=== PATIENT | male | born 1935 | race Caucasian/White ===

== ENCOUNTER → 2018-05-06 13:41 | Outpatient (CLI) | payer MEDICARE, OTHER, SELFPAY ==
[2018-05-06 15:52] LABS: Absolute Lymphocyte Count 1.11 X10^3/ul (0.83-4.51); Absolute Neutrophil Count 3.2 X10^3/uL (2.0-7.7); Basophil# 0.04 X10^3/uL; Basophil% 0.8 % (0-1); Eosinophil# 0.06 X10^3/uL; Eosinophils% 1.2 % (0-5); Hematocrit 35.3 % (40-54); Hemoglobin 11.7 g/dl (13.0-16.5); Lymphocyte # 1.11 X10^3/ul (4.0); Lymphocyte % 22.9 % (19-41); Mean Corp Hgb Conc 33.1 g/gl (32-36); Mean Corpuscular Hgb 31.7 pg (27.0-32.0); Mean Corpuscular Volume 95.7 fL (80-94); Mean Platelet Vol. 8.5 fl (6.2-12.0); Monocyte# 0.44 X10^3/uL; Monocyte% 9.1 % (0-10); Platelet Count 149 K/mm3 (150-450); RBC Distribution Width CV 12.5 % (11.6-14.6); RBC Distribution Width SD 43.3 fl (35.1-43.9); Red Blood Count 3.69 M/mm3 (4.6-6.2); White Blood Count 4.9 K/mm3 (4.4-11.0)
[2018-05-06 16:14] LABS: Anion Gap 10 (5-15); BUN 22 mg/dL (7-18); BUN/Creat Ratio 17.6 RATIO (10-20); Calcium,Total 8.7 mg/dL (8.5-10.1); Chloride 101 mmol/L (98-107); Creatinine, Serum 1.25 mg/dL (0.70-1.30); EST Glomerular Filtration Rate 59 mL/min (>60); Est Glom Filt Rate - Afr Amer 71 mL/min (>60); Glucose 176 mg/dL (74-106); Potassium 3.9 mmol/L (3.5-5.1); Sodium Level 138 mmol/L (136-145)
[2018-05-06 16:20] LABS: POSITIVE COUNT NO; POSITIVE DIFFERENTIAL NO; POSITIVE MORPHOLOGY NO
[2018-05-06 16:51] LABS: Microalbumin,Random Urine 13.8 mg/L (NO RANGE EST.); Microalbumin:Creatinine Ratio 15.8 mg/g CRE (<30 mg/g CRE)
== END ==
PROVIDERS: Family Provider Family Medicine; PCP Family Medicine; Visit Provider Family Medicine
DX: M51.37 Other intervertebral disc degeneration, lumbosacral region (principal); I10 Essential (primary) hypertension
CPT/HCPCS: 36415; 80048; 82043; 82570; 85025

== ENCOUNTER → 2019-08-21 09:15 | Outpatient (CLI) | payer MEDICARE, OTHER, SELFPAY ==
[2019-08-21 10:02] LABS: Absolute Lymphocyte Count 1.13 X10^3/uL (0.83-4.51); Absolute Neutrophil Count 2.8 X10^3/uL (2.0-7.7); Basophil# 0.03 X10^3/uL; Basophil% 0.7 % (0-1); Eosinophil# 0.07 X10^3/uL; Eosinophils% 1.5 % (0-5); Hematocrit 38.1 % (40-54); Hemoglobin 12.8 g/dL (13.0-16.5); Lymphocyte # 1.13 X10^3/ul (4.0); Lymphocyte % 24.6 % (19-41); Mean Corp Hgb Conc 33.6 g/dL (32-36); Mean Corpuscular Hgb 32.1 pg (27.0-32.0); Mean Corpuscular Volume 95.5 fL (80-94); Mean Platelet Vol. 8.6 fl (6.2-12.0); Monocyte# 0.54 X10^3/uL; Monocyte% 11.8 % (0-10); NRBC Flagged by Analyzer 0 % (0-5); Neutrophil # 2.81 X10^3/uL (2.7-7.7); Neutrophil % 61.2 % (47-70); Platelet Count 161 K/mm3 (150-450); RBC Distribution Width CV 11.9 % (11.6-14.6); RBC Distribution Width SD 41.1 fl (35.1-43.9); Red Blood Count 3.99 M/mm3 (4.6-6.2); White Blood Count 4.6 K/mm3 (4.4-11.0)
[2019-08-21 10:29] LABS: Microalbumin,Random Urine 8.4 mg/L (NO RANGE EST.); Microalbumin:Creatinine Ratio 11.9 mg/g CRE (<30 mg/g CRE)
[2019-08-21 10:37] LABS: Vitamin B12 446 pg/mL (211-911)
[2019-08-21 11:11] LABS: ALB/GLOB Ratio 1.2 RATIO (0.9-2.4); AST(SGOT) 41 U/L (15-37); Alanine Aminotransfer ALT/SGPT 39 U/L (16-61); Albumin, Serum 4.2 g/dL (3.2-5.0); Alkaline Phosphatase 84 U/L (45-117); Anion Gap 10 (5-15); BUN 17 mg/dL (7-18); BUN/Creat Ratio 13.8 RATIO (10-20); Calcium,Total 9.5 mg/dL (8.5-10.1); Chloride 98 mmol/L (98-107); Creatinine, Serum 1.23 mg/dL (0.70-1.30); EST Glomerular Filtration Rate 60 mL/min (>60); Est Glom Filt Rate - Afr Amer 72 mL/min (>60); Globulin 3.4 g/dL (2.2-4.2); Glucose 89 mg/dL (74-106); Magnesium 1.7 mg/dL (1.6-2.6); Protein, Total 7.6 g/dL (6.4-8.2); Sodium Level 136 mmol/L (136-145)
[2019-08-22 09:38] LABS: Ferritin 65 ng/mL (26-388)
== END ==
PROVIDERS: Family Provider Family Medicine; PCP Family Medicine; Referring Provider Family Medicine; Visit Provider Family Medicine
DX: I10 Essential (primary) hypertension (principal); D50.9 Iron deficiency anemia, unspecified
CPT/HCPCS: 36415; 80053; 82043; 82570; 82607; 82728; 82746; 83735; 85025

== ENCOUNTER 2019-09-12 10:00 | Outpatient (RCR) | payer MEDICARE, OTHER, SELFPAY ==
--- NOTE | 2019-08-25 09:33 | HP.OTEVAL ---
Patient's Visit Information ELIZABETH SAMS is a 84 year old M, referred to Occupational Therapy by Bryn Pruett MD, with a diagnosis of bilateral RF trigger finger. Date of Evaluation: 08/23/19 Occupational Therapist: Juany Erazo, OBINNA/Luis, CHT - Subjective Subjective: This 84 year old male was seen for OT eval with dx of bilateral 4th trigger finger, right trapezium pain and olecranon bursitis. - pt states he has been having difficulty for about 8 weeks- pt states its difficult to perform daily tasks with the triggering and has noticed bilateral hand sorness. pt reports right trap sorness sometimes in the Am - and demo edema around right elbow- state he fell on it last winter and swelling did not go away. - ADLs Comments: pt reports he is noticing increase soreness with increase activities- pt does not use ad. eq. at this time for home mtg. states he does use a gripper to open jar lids. - ROM Shoulder: R/L WNL Elbow: R/L WNL Forearm: R/L WNL Wrist: R/L WNL ROM Comments: pt demo BRIAN WNL with positive trigger finger of right RF and left RF - Strength Shoulder: right 5/5 left 5/5 Elbow: right 4+/5 left 5/5 Field Service Engineer: right 80# left 85# Lateral Pinch: right 20# left 20# Tripod Pinch: right 18# left 14# - Edema Other: right elbow olecranon - Sensation Sensation Comments: denies - Quick DASH-Disab of Arm,Shoulder& Hand Quick DASH Score: 29.5450 - Goals Goal:: pt will demo the ability to form a composite fist with bilateral hands without RF triggering by d/c Goal:: pt will report pain no greater than 1/10 with use of right UE for ADLS by d/c Goal:: pt will demo ind. donning/doffing of bilateral RF trigger finger orthosis by end of 1st session. pt will demo understanding of orthosis precautions by end of 1st session - Rehabilitation General Assessment: pt demo with positive RF trigger fingers, and edema around left elbow- point tender at right upper trap region- limiting pts ind. with ADls and IADLS. Pt would benefit from skilled OT services 1x week for 4 weeks. Today therapist ed. pt on trigger finger and tx cherri. as ice and bracing.therapist zach custom trigger finger orthosis and ed. on use. pt demo understanding and agree to POC. Rehabilitation Potential: Good - Anticipated Interventions Anticipated Interventions: A/AAROM/PROM, Edema Control, Orthoses, Joint Protection/Energy Conservation - Visit Plan Frequency: 1x/Week Duration: 4 Weeks TEXT: Thank you for the opportunity to evaluate your patient. For Medicare and Medicare HMO plans, please review the plan of care and approve it. It will need to be FAXED BACK to us at [phone] for Medicare purposes. Please let me know if there are questions or concerns regarding this plan of care. Physician Signature: Date:
--- NOTE | 2019-09-12 10:20 | HP.OTDCSUM_ITS ---
HP - OT D/C Summary It has been my pleasure to treat ELIZABETH SAMS under orders from Bryn Pruett MD, for the diagnosis of bilateral RF trigger finger for a total of 3 visit(s). Please see the following information for a summary of their discharge status. - Overall Improvement % Improvement: 90 - Objective Objective/Function: right clerical methods analyst 85#. left clerical methods analyst strength 87#. right elbow cir. 28.5cm. left 27cm - Goals Patient Goals: Regain Mobility, Decrease Pain, Use Hand/Wrist/Arm Normally Again Goal:: pt will demo the ability to form a composite fist with bilateral hands without RF triggering by d/c Goal:: pt will report pain no greater than 1/10 with use of right UE for ADLS by d/c Goal:: pt will demo ind. donning/doffing of bilateral RF trigger finger orthosis by end of 1st session. pt will demo understanding of orthosis precautions by end of 1st session - Plan Plan: D/C - D/C Information Discharge Comments: Pt was seen for 3 visits RF trigger fingers, and edema around right elbow- point tender at right upper trap pain- pt was ed.in trigger finger and returns today stating symptoms have resoloved- pt also states pain in upper trap is less frequent and is not limiting him at this time. Pt cont. to demo with edema around right elbow but us using compression sleeve to mtg at this time. Pt has met goals in OT and d/c using joint protection cherri. to cont.to provide support and limit stress on joints. If there are questions or concerns regarding this patient's occupational therapy, please fell free to call me at [phone]. Thank you for the referral of this patient. Sincerely, Juany Erazo, OTR/L, CHT
== END 2019-09-12 19:00 | disposition home or self-care (01) ==
LOC: OT 10:00
PROVIDERS: Family Provider Family Medicine; PCP Family Medicine; Referring Provider Family Medicine; Visit Provider Family Medicine
DX: M65.342 Trigger finger, left ring finger (principal); M65.341 Trigger finger, right ring finger; S46.811D Strain of other muscles, fascia and tendons at shoulder and upper arm level, right arm, subsequent encounter
CPT/HCPCS: 97166; 97530; 97760

== ENCOUNTER 2019-10-26 11:21 | Emergency (ER) | payer MEDICARE, OTHER, SELFPAY ==
[2019-10-26 11:22] VITALS: BP 188/80; PULSE 79; RESP 17; TEMP 36.4; O2SAT 100; BMI 23.9
--- NOTE | 2019-10-26 11:43 | RAD_ITS ---
STUDY: X-RAY CHEST REASON FOR EXAM: Male, 84 years old. CHEST PAIN TECHNIQUE: Single AP portable view of the chest. COMPARISON: None. FINDINGS: The lungs are clear and expanded. There is no demonstrated pleural abnormality. Normal size heart. Normal mediastinum and dave. Normal visualized pulmonary arteries. Normal visualized aortic arch and descending thoracic aorta. Normal visualized thoracic spine. There is degenerative osteoarthritis of the bilateral shoulders. There is no demonstrated abnormality of the visualized soft tissue structures of the upper abdomen. RAD/Chest 1 View (Portable) IMPRESSION: Degenerative changes, as described above. No demonstrated acute cardiopulmonary process. Electronically Signed: Roberth Segura, at 12:23 EST Tel , Service support ,
--- NOTE | 2019-10-26 11:43 | EKG12_ITS ---
Test Reason : REPEATCP Blood Pressure : / mmHG Vent. Rate : 058 BPM Atrial Rate : 058 BPM P-R Int : 136 ms QRS Dur : 100 ms QT Int : 404 ms P-R-T Axes : 016 051 059 degrees QTc Int : 396 ms Sinus bradycardia Otherwise normal ECG Confirmed by MARIA C HACKETT, MOHAN ([id number]), editorial assistant SULEIMAN SAMS ([id number]) on 10/27/2019 10:15:58 AM Referred By: MARIAJOSE Confirmed By:HIGINIO LOMBARDI MD
--- NOTE | 2019-10-26 11:44 | ED.VIS.GEN ---
History of Present Illness Chief Complaint: Chest Pain Informant: Patient Onset: Today Context: Sudden Onset Timing: Continuous, Waxes and wanes Quality: Pain Location: Left pectoral region Current Severity: - - Barely noticeable Maximum Severity: Severe Worsened by: Nothing Relieved by: Nothing Associated Symptoms: No radiation or associated symptoms Narrative: Patient is an elderly male with history of hypertension and hypercholesterolemia who presents with left sided chest pain. There are no exacerbating, precipitating alleviating factors. He denies history of hiatal hernia, reflux or peptic ulcers. He denies black or maroon stool. He denies leg pain, swelling or discoloration. There is no history of PE or DVT. Patient was not exerting himself when the pain started. Physician may make it worse. He was concerned and presents because it has been present for several hours. He did take aspirin prior to arrival. Prior similar symptoms: No Recent Illness/Hospitalization: No - Past Medical History (1) History of hypertension Status: Acute Past Medical History - Allergies and Home Meds Allergies/Adverse Reactions: Allergies No Known Allergies Allergy (Verified 10/26/19 11:29) Primary Care Physician: Bryn Pruett MD [Primary Care Provider] - Prior records reviewed: Yes Lives: Spouse/ Significant Other Smoking Status: Former smoker Alcohol: None Drugs: None Review of Systems General: Denies: Chills, Fever, Sweats Eyes: Denies: Visual changes - bilaterally, Blurred Vision - bilaterally, Diplopia ENT: Denies: Rhinorrhea, Sore throat Cardiovascular: Reports: Chest pain. Denies: Palpitations, Heart racing Respiratory: Denies: Dyspnea, Cough, Dyspnea on exertion, Orthopnea, Paroxysmal nocturnal dyspnea Gastrointestinal: Denies: Abdominal pain, Nausea, Vomiting, Diarrhea, Melena, Hematochezia Genitourinary: Denies: Dysuria, Hematuria, Frequency Musculoskeletal: Denies: Myalgias, Arthralgias, Neck pain, Back pain, Swelling, Extremity Pain Skin: Denies: Rash, Wounds Neurological: Denies: Headache, Weakness, Numbness Hematologic: Denies: Easy bruising, Easy bleeding Allergy: Denies: Uticaria, Swelling of the mouth Physical Exam Vital Signs/Narrative: Vital Signs Temp Pulse Resp BP Pulse Ox 10/26/19 11:22 97.6 F L 79 17 188/80 H 100 Inital Vital Signs reviewed: Yes General: Well nourished, Well developed, No Acute Distress Head: Normocephalic, Atraumatic Eyes: Perrl, EOMI ENT: Moist mucous membranes, No rhinorrhea Neck: Supple, Nontender Cardiovascular: Regular rate, Regular rhythm, No murmurs Respiratory: No distress, CTA bilaterally, Chest nontender Abdomen: Soft, Nontender, Nondistended, Normal bowel sounds, No masses Back: Nontender, Normal Inspection. Negative for: CVA tenderness Extremities: Nontender, No edema, - - There is no asymmetry, swelling, discoloration, leg vein distention, palpable cords or tenderness along the distribution of the deep venous system.. Negative for: Calf Tenderness Skin: Normal color, No rash, No Trauma. Negative for: Cyanosis, Diaphoresis, Jaundice Neurological: Alert, Oriented x3, Cranial nerves II-XII grossly intact, Normal Strength, Normal Sensation Psychological: Normal affect, Normal Mood Diagnostic/Tx/Re-eval Impressions Chest X-Ray 10/26/19 11:43 IMPRESSION: Degenerative changes, as described above. No demonstrated acute cardiopulmonary process. Electronically Signed: Roberth Segura, at 12:23 EST Tel , Service support , 10/26/19 11:43 Chest 1 View (Portable) [RAD] Stat Laboratory Results 10/26/19 10/26/19 11:25 11:25 WBC 6.6 RBC 3.99 L Hgb 12.9 L Hct 38.4 L MCV 96.2 H MCH 32.3 H MCHC 33.6 RDW Std Deviation 41.8 RDW Coeff of Florencia 11.9 Plt Count 167 MPV 8.4 Immature Gran % (Auto) 0.300 Neut % (Auto) 60.7 Lymph % (Auto) 26.1 Finney % (Auto) 10.5 H Eos % (Auto) 1.8 Baso % (Auto) 0.6 Absolute Neuts (auto) 4.0 Absolute Lymphs (auto) 1.71 Nucleated RBC % 0 Sodium 137 Potassium 4.0 Chloride 100 Carbon Dioxide 29.0 Anion Gap 8 BUN 20 H Creatinine 1.39 H Estim Creat Clear Calc 44.97 Est GFR (MDRD) Af Amer 63 Est GFR (MDRD) Non-Af 52 L BUN/Creatinine Ratio 14.4 Glucose 105 Calcium 9.6 Troponin I < 0.015 Patient was informed of his test results. He was informed he is considered low risk. Will obtain 3-hour EKG and troponin. - EKG Initial EKG Interpretation: Sinus Rhythm - Sinus rhythm with a ventricular rate of 68. NC interval 146 ms. QRS duration 94 ms. QT duration 392 ms. [place] is normal. Follow-up EKG Interpretation: Sinus Rhythm - Sinus bradycardia rate of 58. NC interval 136 ms. QS duration 100 ms. QT duration 404 ms. [place] normal. EKG is unchanged from EKG that was obtained 1125. - Medical Decision Making Patient with atypical chest pain. Will obtain EKG, troponin appropriate blood work. Chest x-ray was obtained to determine there is any pulmonary etiology and to assess the mediastinum. 3-hour EKG and troponin are normal. Delta 0. With atypical presentation plan is to discharge to home and follow-up with his primary care physician. ED Disposition - Plan for ED Patient: Disposition: Home or Assisted Living Diagnosis: Left-sided chest pain, History of hypertension Instructions: CHEST PAIN, Uncertain Cause Referrals: Bryn Pruett MD [Primary Care Provider] - 3-5 Days
[2019-10-26 11:52] LABS: Absolute Lymphocyte Count 1.71 X10^3/uL (0.83-4.51); Basophil# 0.04 X10^3/uL; Basophil% 0.6 % (0-1); Eosinophil# 0.12 X10^3/uL; Eosinophils% 1.8 % (0-5); Hematocrit 38.4 % (40-54); Hemoglobin 12.9 g/dL (13.0-16.5); Lymphocyte # 1.71 X10^3/ul (4.0); Lymphocyte % 26.1 % (19-41); Mean Corp Hgb Conc 33.6 g/dL (32-36); Mean Corpuscular Hgb 32.3 pg (27.0-32.0); Mean Corpuscular Volume 96.2 fL (80-94); Mean Platelet Vol. 8.4 fl (6.2-12.0); Monocyte# 0.69 X10^3/uL; Monocyte% 10.5 % (0-10); NRBC Flagged by Analyzer 0 % (0-5); Neutrophil # 3.97 X10^3/uL (2.7-7.7); Neutrophil % 60.7 % (47-70); Platelet Count 167 K/mm3 (150-450); RBC Distribution Width CV 11.9 % (11.6-14.6); RBC Distribution Width SD 41.8 fl (35.1-43.9); Red Blood Count 3.99 M/mm3 (4.6-6.2); White Blood Count 6.6 K/mm3 (4.4-11.0)
[2019-10-26 12:09] LABS: Anion Gap 8 (5-15); BUN 20 mg/dL (7-18); BUN/Creat Ratio 14.4 RATIO (10-20); Calcium,Total 9.6 mg/dL (8.5-10.1); Chloride 100 mmol/L (98-107); Creatinine, Serum 1.39 mg/dL (0.70-1.30); EST Glomerular Filtration Rate 52 mL/min (>60); Est Glom Filt Rate - Afr Amer 63 mL/min (>60); Estimated Creatinine Clearance 44.97 ml/min; Glucose 105 mg/dL (74-106); Sodium Level 137 mmol/L (136-145)
[2019-10-26 12:59] VITALS: BP 134/70; PULSE 59; RESP 16; O2SAT 100
[2019-10-26 14:12] VITALS: BP 143/70; PULSE 68; RESP 18; O2SAT 98
--- NOTE | 2019-10-26 14:25 | EKG12_ITS ---
Test Reason : CP Blood Pressure : / mmHG Vent. Rate : 068 BPM Atrial Rate : 068 BPM P-R Int : 146 ms QRS Dur : 094 ms QT Int : 392 ms P-R-T Axes : 068 059 068 degrees QTc Int : 416 ms Normal sinus rhythm Normal ECG Confirmed by MARIA C HACKETT, MOHAN ([id number]), editor in chief SULEIMAN SAMS ([id number]) on 10/27/2019 10:16:14 AM Referred By: MARIAJOSE Confirmed By:HIGINIO LOMBARDI MD
[2019-10-26 15:18] VITALS: BP 127/67; PULSE 60
== END 2019-10-26 15:19 | disposition home or self-care (01) ==
PROVIDERS: Emergency Provider Emergency Medicine; Family Provider Family Medicine; PCP Family Medicine
DX: R07.89 Other chest pain (principal); I10 Essential (primary) hypertension; E78.00 Pure hypercholesterolemia, unspecified; Z87.891 Personal history of nicotine dependence
CPT/HCPCS: 71045; 80048; 84484; 85025; 93005; 99285; A4216

== ENCOUNTER → 2019-11-09 06:29 | Outpatient (CLI) | payer MEDICARE, SELFPAY ==
[2019-10-26 11:22] VITALS: BMI 23.9
--- NOTE | 2019-11-09 11:21 | STRESSREP_ITS ---
Stress Test Report Date: 11/09/2019 Procedure: Exercise tolerance test/imaging study Indications: Chest pain Consent: Per the patient Procedure: The patient exercised on a Seth protocol for 7 minutes and 30 seconds achieving a peak heart rate of 146 bpm (105 % predicted maximal heart rate) with a peak blood pressure 168/72 mmHg and a peak MET capacity of 9.3 METs. The baseline ECG demonstrated normal sinus rhythm, occasional PACs. The peak exercise ECG demonstrated sinus tachycardia with baseline artifact. No definite ischemic changes. EKG during recovery revealed no significant ischemic changes [There were no cardiac dysrhythmias pretest, during exercise, or recovery]. The functional capacity was considered above average for age. There was [no complaint of chest discomfort during exercise or recovery]. The examination was discontinued secondary to leg fatigue, achieving target heart rate. Impression: 1. Technically adequate (percent predicted maximal heart rate greater than 85%) exercise tolerance test 2. Stress test is negative for exercise-induced EKG changes of ischemia 3. The test test is negative for exercise-induced chest pain 4. Functional capacity is above average for age 5. Nuclear images pending Myocardial perfusion imaging study: Technique: The patient was injected with [11.7] mCi of technetium 99m Cardiolite and subsequently rest SPECT Cardiolite nuclear imaging was obtained in the horizontal long, vertical long, and short axis views. The patient exercised on a Seth protocol. Please see above for details. The patient was injected with 33.1 mCi of technetium 99m Cardiolite and subsequently stress SPECT Cardiolite nuclear imaging was obtained in the horizontal long, vertical long, and short axis views. A gated Cardiolite study at peak stress was obtained. Interpretation: Rest and stress SPECT Cardiolite nuclear imaging status post realignment, normalization, and attenuation correction, demonstrates mildly decreased radioisotope uptake in the inferior wall on both the rest and stress images prior to attenuation correction. After attenuation correction there is normal myocardial radioisotope uptake in the stress images suggestive of diaphragmatic attenuation artifact. The gated Cardiolite study demonstrates no significant regional wall motion abnormalities. The reported LVEF is greater than 70 %. Impression: 1. There is no evidence of significant ischemia or infarction. 2. The gated Cardiolite study reports an LVEF of greater than 70 %. This note was generated with [employer] software. It may contain incorrect words, spelling, and punctuation that were not noted in checking the note before signing.
== END ==
PROVIDERS: Family Provider Family Medicine; PCP Family Medicine; Referring Provider Family Medicine; Visit Provider Family Medicine
DX: R07.9 Chest pain, unspecified (principal)
CPT/HCPCS: 78452; 93017; A9500; A4216

== ENCOUNTER → 2020-02-19 07:34 | Outpatient (CLI) | payer MEDICARE, SELFPAY ==
[2020-02-19 09:56] LABS: Absolute Lymphocyte Count 1.23 X10^3/uL (0.83-4.51); Absolute Neutrophil Count 5.8 X10^3/uL (2.0-7.7); Basophil# 0.05 X10^3/uL; Basophil% 0.6 % (0-1); Eosinophil# 0.08 X10^3/uL; Hematocrit 36.1 % (40-54); Hemoglobin 12.1 g/dL (13.0-16.5); Lymphocyte # 1.23 X10^3/ul (4.0); Lymphocyte % 15.3 % (19-41); Mean Corp Hgb Conc 33.5 g/dL (32-36); Mean Corpuscular Hgb 31.7 pg (27.0-32.0); Mean Corpuscular Volume 94.5 fL (80-94); Mean Platelet Vol. 8.8 fl (6.2-12.0); Monocyte# 0.83 X10^3/uL; Monocyte% 10.3 % (0-10); NRBC Flagged by Analyzer 0 % (0-5); Neutrophil # 5.84 X10^3/uL (2.7-7.7); Neutrophil % 72.6 % (47-70); Platelet Count 170 K/mm3 (150-450); RBC Distribution Width CV 11.7 % (11.6-14.6); RBC Distribution Width SD 39.8 fl (35.1-43.9); Red Blood Count 3.82 M/mm3 (4.6-6.2); White Blood Count 8.1 K/mm3 (4.4-11.0)
[2020-02-19 10:09] LABS: Vitamin B12 395 pg/mL (211-911)
[2020-02-19 11:48] LABS: ALB/GLOB Ratio 1.3 RATIO (0.9-2.4); AST(SGOT) 32 U/L (15-37); Alanine Aminotransfer ALT/SGPT 31 U/L (16-61); Albumin, Serum 4.1 g/dL (3.2-5.0); Alkaline Phosphatase 82 U/L (45-117); Anion Gap 9 (5-15); BUN 18 mg/dL (7-18); Calcium,Total 9.2 mg/dL (8.5-10.1); Chloride 93 mmol/L (98-107); Creatinine, Serum 1.38 mg/dL (0.70-1.30); EST Glomerular Filtration Rate 52 mL/min (>60); Est Glom Filt Rate - Afr Amer 63 mL/min (>60); Ferritin 69 ng/mL (26-388); Folates, (Folic Acid) > 100.00 ng/mL (3.1-55.4); Globulin 3.1 g/dL (2.2-4.2); Glucose 161 mg/dL (74-106); PSA,Total - Annual Screen 1.32 ng/mL (0.00-4.00); Potassium 3.7 mmol/L (3.5-5.1); Protein, Total 7.2 g/dL (6.4-8.2); Sodium Level 132 mmol/L (136-145); Thyroid Stim Hormone (TSH) 1.66 uIU/mL (0.358-3.74)
== END ==
PROVIDERS: PCP Family Medicine; Referring Provider Family Medicine; Visit Provider Family Medicine
DX: Z00.00 Encounter for general adult medical examination without abnormal findings (principal); Z12.5 Encounter for screening for malignant neoplasm of prostate; D72.819 Decreased white blood cell count, unspecified; D64.9 Anemia, unspecified; M19.049 Primary osteoarthritis, unspecified hand
CPT/HCPCS: 36415; 80053; 82607; 82728; 82746; 84153; 84443; 85025; G0103

== ENCOUNTER → 2020-03-21 07:46 | Outpatient (CLI) | payer MEDICARE, SELFPAY ==
[2020-03-21 10:16] LABS: Absolute Lymphocyte Count 1.54 X10^3/uL (0.83-4.51); Absolute Neutrophil Count 2.9 X10^3/uL (2.0-7.7); Basophil# 0.03 X10^3/uL; Basophil% 0.6 % (0-1); Eosinophil# 0.14 X10^3/uL; Eosinophils% 2.7 % (0-5); Hematocrit 38.1 % (40-54); Hemoglobin 12.6 g/dL (13.0-16.5); Lymphocyte # 1.54 X10^3/ul (4.0); Lymphocyte % 29.7 % (19-41); Mean Corp Hgb Conc 33.1 g/dL (32-36); Mean Corpuscular Hgb 32.2 pg (27.0-32.0); Mean Corpuscular Volume 97.4 fL (80-94); Mean Platelet Vol. 8.5 fl (6.2-12.0); Monocyte# 0.62 X10^3/uL; Monocyte% 11.9 % (0-10); NRBC Flagged by Analyzer 0 % (0-5); Neutrophil # 2.85 X10^3/uL (2.7-7.7); Neutrophil % 54.9 % (47-70); Platelet Count 183 K/mm3 (150-450); RBC Distribution Width CV 11.9 % (11.6-14.6); RBC Distribution Width SD 42.8 fl (35.1-43.9); Red Blood Count 3.91 M/mm3 (4.6-6.2); White Blood Count 5.2 K/mm3 (4.4-11.0)
[2020-03-21 10:30] LABS: ALB/GLOB Ratio 1.2 RATIO (0.9-2.4); AST(SGOT) 36 U/L (15-37); Alanine Aminotransfer ALT/SGPT 42 U/L (16-61); Albumin, Serum 4.1 g/dL (3.2-5.0); Alkaline Phosphatase 85 U/L (45-117); Anion Gap 6 (5-15); BUN 14 mg/dL (7-18); BUN/Creat Ratio 11.3 RATIO (10-20); Calcium,Total 9.5 mg/dL (8.5-10.1); Chloride 97 mmol/L (98-107); Creatinine, Serum 1.24 mg/dL (0.70-1.30); EST Glomerular Filtration Rate 59 mL/min (>60); Est Glom Filt Rate - Afr Amer 72 mL/min (>60); Globulin 3.4 g/dL (2.2-4.2); Glucose 115 mg/dL (74-106); Potassium 4.1 mmol/L (3.5-5.1); Protein, Total 7.5 g/dL (6.4-8.2); Sodium Level 134 mmol/L (136-145)
[2020-03-22 14:56] LABS: Haptoglobin 67 mg/dL (38-329)
== END ==
PROVIDERS: PCP Family Medicine; Referring Provider Family Medicine; Visit Provider Family Medicine
DX: I10 Essential (primary) hypertension (principal)
CPT/HCPCS: 36415; 80053; 83010; 85025

== ENCOUNTER → 2021-03-10 11:19 | Outpatient (CLI) | payer MEDICARE, SELFPAY ==
[2021-03-10 11:24] LABS: Lyme Ab Screen Interpretation REF LAB
[2021-03-10 15:16] LABS: Absolute Lymphocyte Count 1.22 X10^3/uL (0.83-4.51); Absolute Neutrophil Count 3.8 X10^3/uL (2.0-7.7); Basophil# 0.05 X10^3/uL; Basophil% 0.9 % (0-1); Eosinophil# 0.07 X10^3/uL; Eosinophils% 1.2 % (0-5); Hematocrit 38.6 % (40-54); Hemoglobin 12.8 g/dL (13.0-16.5); Lymphocyte # 1.22 X10^3/ul (0.83-4.51); Lymphocyte % 21.1 % (19-41); Mean Corp Hgb Conc 33.2 g/dL (32-36); Mean Corpuscular Volume 96.5 fL (80-94); Mean Platelet Vol. 9.1 fl (6.2-12.0); Monocyte% 10.4 % (0-10); NRBC Flagged by Analyzer 0 % (0-5); Neutrophil # 3.84 X10^3/uL (2.7-7.7); Neutrophil % 66.2 % (47-70); Platelet Count 226 K/mm3 (150-450); RBC Distribution Width CV 11.7 % (11.6-14.6); RBC Distribution Width SD 41.6 fl (35.1-43.9); White Blood Count 5.8 K/mm3 (4.4-11.0)
[2021-03-10 15:17] LABS: Erythrocyte Sedimentation Rate < 1 mm/hr (0-20)
[2021-03-10 15:53] LABS: ALB/GLOB Ratio 1.3 RATIO (0.9-2.4); AST(SGOT) 38 U/L (15-37); Alanine Aminotransfer ALT/SGPT 34 U/L (16-61); Albumin, Serum 4.2 g/dL (3.2-5.0); Alkaline Phosphatase 76 U/L (45-117); Anion Gap 5 (5-15); BUN 19 mg/dL (7-18); BUN/Creat Ratio 16.7 RATIO (10-20); CPK Total, Creatine Kinase 252 U/L (39-308); CRP < 2.90 mg/L (0.0-3.0); Calcium,Total 9.5 mg/dL (8.5-10.1); Chloride 102 mmol/L (98-107); Creatinine, Serum 1.14 mg/dL (0.70-1.30); EST Glomerular Filtration Rate 65 mL/min (>60); Est Glom Filt Rate - Afr Amer 79 mL/min (>60); Globulin 3.2 g/dL (2.2-4.2); Glucose 88 mg/dL (74-106); Protein, Total 7.4 g/dL (6.4-8.2); Sodium Level 136 mmol/L (136-145); Thyroid Stim Hormone (TSH) 1.63 uIU/mL (0.358-3.74)
[2021-03-11 08:34] LABS: Syphilis Antibodies Non-reactive; Vitamin B12 452 pg/mL (211-911)
[2021-03-12 16:09] LABS: PROEL- A/G Ratio 1.6 (0.7-1.7); PROEL- Albumin 4.2 g/dL (2.9-4.4); PROEL- Alpha-1 Globulin 0.2 g/dL (0.0-0.4); PROEL- Alpha-2 Globulin 0.6 g/dL (0.4-1.0); PROEL- Gamma Globulin 0.9 g/dL (0.4-1.8); PROEL- Globulin, Total 2.7 g/dL (2.2-3.9); PROEL- TOTAL PROTEIN 6.9 g/dL (6.0-8.5)
[2021-03-12 16:45] LABS: Lyme Scn Total Ab w/Rflx <0.91 ISR (0.00-0.90)
[2021-03-12 16:46] LABS: ANTINUCLEAR ANTIBODIES DIRECT Negative (Negative)
== END ==
PROVIDERS: PCP Family Medicine; Referring Provider Family Medicine; Visit Provider Family Medicine
DX: M62.81 Muscle weakness (generalized) (principal)
CPT/HCPCS: 36415; 80053; 82550; 82607; 84165; 84403; 84443; 85025; 85652; 86038; 86140; 86618; 86780

== ENCOUNTER → 2021-03-13 09:27 | Outpatient (CLI) | payer MEDICARE, SELFPAY ==
--- NOTE | 2021-03-13 09:32 | RAD_ITS ---
STUDY: X-RAY - CERVICAL SPINE REASON FOR EXAM: Male, 86 years old. DDD TECHNIQUE: 5 view(s) of the cervical spine were obtained including oblique views. COMPARISON: None FINDINGS: There are degenerative changes of the anterior atlantoaxial articulation. Normal odontoid process. Minimal anterior listhesis of C3 on C4. There is multi-level endplate spondylosis. There is multi-level degenerative disc disease with multilevel disc space narrowing. Normal visualized intervertebral neuroforamina. There are atherosclerotic vascular calcifications of the carotid arteries. RAD/Cerv Spine 4 or 5 Views IMPRESSION: Minimal anterolisthesis of C3 on C4. This space narrowing and spondylosis at the C5-C6 and C6-C7 levels. Electronically Signed: Smith Veloz MD at 13:50 EDT , Service support ,
--- NOTE | 2021-03-13 09:32 | RAD_ITS ---
STUDY: X-RAY - LUMBAR SPINE REASON FOR EXAM: Male, 86 years old. Degenerative disc disease. TECHNIQUE: 3 view(s) of the lumbar spine were obtained. COMPARISON: None FINDINGS: There is no evidence of fracture or dislocation in the lumbar spine. The vertebral body heights are well-maintained. There are moderate to severe degenerative changes with facet hypertrophy and disc space narrowing and small osteophytes. This is most pronounced at L4/L5 and L5/S1. The visualized soft tissues are within normal limits. RAD/Lumbar Spine 2 or 3 Views IMPRESSION: No fracture or dislocation in the lumbar spine. Moderate to severe degenerative change which is most pronounced in the lower lumbar spine. Electronically Signed: Jose Muse MD at 8:15 EDT Tel , Service support ,
== END ==
PROVIDERS: PCP Family Medicine; Referring Provider Family Medicine; Visit Provider Family Medicine
DX: M51.37 Other intervertebral disc degeneration, lumbosacral region (principal); M47.812 Spondylosis without myelopathy or radiculopathy, cervical region
CPT/HCPCS: 72050; 72100

== ENCOUNTER → 2021-03-24 08:23 | Outpatient (CLI) | payer MEDICARE, SELFPAY ==
--- NOTE | 2021-03-24 08:26 | CT_ITS ---
STUDY: CT BRAIN WITHOUT CONTRAST REASON FOR EXAM: Male, 86 years old. New onset, subacute weakness with gait ataxia. Concern for NPH RADIATION DOSAGE (If Supplied By Facility): CTDIvol = ( 44.99 ) mGy, DLP = ( 812.98 ) mGycm TECHNIQUE: Transaxial CT imaging of the brain was performed without administration of intravenous contrast material. Individualized dose optimization techniques were used for this CT. COMPARISON: No relevant priors. FINDINGS: Normal soft tissue structures. Normal calvarium. There is mild cerebral atrophy with widening of the extra-axial spaces and ventricular dilatation. Normal white matter tracts of the cerebral hemispheres. There are small punctate calcifications of the basal ganglia which are seen in the aging brain as a normal variant. Normal brainstem. Normal cerebellum. There is no intracranial hemorrhage. There are no findings of an acute ischemic infarction. There is a 9 mm polyp or retention cyst along the inferior medial aspect of the left maxillary sinus. CT/Brain/Head without Contrast IMPRESSION: Chronic involutional changes of the brain. Electronically Signed: Smith Veloz MD at 10:20 EDT , Service support ,
== END ==
PROVIDERS: PCP Family Medicine; Referring Provider Family Medicine; Visit Provider Family Medicine
DX: R27.8 Other lack of coordination (principal)
CPT/HCPCS: 70450

== ENCOUNTER 2021-05-08 10:00 | Outpatient (RCR) | payer MEDICARE, SELFPAY ==
--- NOTE | 2021-04-07 09:51 | HP.PTEVAL ---
Patient's Visit Information ELIZABETH SAMS is a 86 year old M referred to Physical Therapy by Dr. Bryn Pruett MD with a diagnosis of gait ataxia, weakness, R shoulder pain.. Date of Evaluation: 04/07/21 Physical Therapist: Bryn Abrams, DPT, OCS, CSCS - Visit Plan Frequency: 1x/Week Duration: 3 Months Plan: weekly x 6-12 for. 1. Neurocm balance performance test next session. 2. R UT STM, MH, cervical and postural strength and ICT. 3. Teach ex for balance and strength LE and posture that pt can complete in gym on own via [employer]. Ensure sleep position and posture to minimze neck problems. - Subjective A few months ago has started getting some symptoms and they are progressing. Will see neurologist in two weeks. Symptoms are ataxia. Fatigues and weakness quickly. Muscle and joint pain and stiffness in fingers and finger tips numb. Unstaedy with gait. R arm pain. Pain in R neck and arm worse at ngiht and with lifting. Walking back to PT 300 feet gives him SOB and feels unsteady. This has come on for no apparent reason but he was in good health at the beginning of this year. All of a sudden, walking became challenging. Wie rides power cart at [facility] and cannot keep up. Has lost incentive to do a lot of things as everything is difficult. Hard to stand when he ana down. If sits too long then hips hurt. Leg muscles can hurt when he reaches. This pain is typically transient. Sleeps well except for R UE pain. 0-8-10 and worse at night. No history of neck problems. Doctor wants him to find active ex program while they find the cause. No falls, no dizzyness. - Pain R arm and neck pain. Pain Intensity (Out of 10): 0 Pain Intensity Range: 0, 8 - Objective Posture is forward head and kyphotic posturall in T/S, head tilted R slightly throughout. - VAT, - ALAR lig test. Tender in R UT slightly and tight vs L side. reflexes bi and tri and achilles and patella 2/3 B. Sensation is WNL to gross lght touch in LE, feels numb slightly in B finger tips. Strength to one time tests in LE ankles 4/5, knees 4/5 and hips 4-/5. Walks with very short steps adn poor confidence with weight shift but I, very tired adn mild SOB after 300 feet ambulation. Steps reciprocally with rail needed. exits chair using UE today. Mild tightness HS and priifomris and hip flexors and quads. romberg eo 30 and ec 30 but much say with ec. - vazquez, no clonus in LE today. Very stiff after sitting for 5+ minutes and takes extra time to stand up from chair and grunts and groans with stiffness and mild soreness trasniently. - Balance Scores Functional Gait Assessment Score: 22 % Disability: 26.6700 - Goals Goal 1:: Sleep 7 hours without discomfort at night Goal Time Frame: 4-6 Weeks Goal 2:: I approp HEP for balance and strength to minimze future problems Goal Time Frame: 4-6 Weeks Goal 3:: Improve gait to normal step length and FGa to 24/30 to minimize future fall risk. Goal Time Frame: 8-12 Weeks Goal 4:: Neurocom balance test adn results to patinet Goal Time Frame: 2 Weeks Goal 5:: Pt feel 75% better overall in pain and gait Goal Time Frame: 8-12 Weeks - Rehabilitation Potential Rehabilitation Potential: Fair - Anticipated Interventions Patient/Client Instruction: Educate patient on: Condition, Plan of Care For the Purpose of:: To decrease pain, To increase ROM, To improve muscle performance and motor function, To increase tolerance to activity/condition/position, To improve gait and locomotor functions Therapeutic Exercise to Include: Strength training, Balance training, Postural training, Flexibilty training, Gait and locomotor training, Scapular Strength/Stabilization For the Purpose of:: To decrease pain, To increase ROM, To improve muscle performance and motor function, To increase tolerance to activity/condition/position, To improve ability of physical actions for home/community/work/leisure, To improve gait and locomotor functions, To improve safety Manual Therapy Techniques to Include: Soft tissue mobilization For the Purpose of:: To decrease pain, To increase ROM Intermittent cervical traction: Yes For the Purpose of:: To decrease pain, To increase ROM, To improve muscle performance and motor function Thank you for the opportunity to evaluate your patient. For Medicare and Medicare HMO plans, please review the plan of care and approve it. It will need to be FAXED BACK to us at [phone] for Medicare purposes. For Medicare only, by signing this I certify the plan of care. Please let me know if there are questions or concerns regarding this plan of care. Physician Signature: Date:
--- NOTE | 2021-04-14 09:44 | HP.PTCOM ---
PT Communication Note 04/14/[address] Bryn Pruett MD , thank you for the referral of Michael to [facility] for balance assessment. I have enclosed a copy of the results for your review. In summation, he scored well on all tests except the Motor Control Test. This may indicate underlying neurologic causes contirbuting to the balance test and his referral to neurologist certainly appropriate and pending. With these results in mind, I plan to see him weekly as ordered to work toward an I strength, balance program for eventual Silver sneakers performance. Also will work on neck ROM and treatments as tolerated until neurologist visit. I have given patient a copy of his results to take with him to his neurologist. Please contact me if there are questions. Sincerely, Bryn Abrams DPT, OCS, CSCS Contact Information
--- NOTE | 2021-05-08 10:41 | HP.PTREVAL ---
Dr. Bryn Pruett MD, It has been my pleasure to treat ELIZABETH SAMS over the last 6 visits for gait ataxia, weakness, R shoulder pain.. Please see the progress note below for an update on the physical therapy plan of care! Subjective: Saw neurologist adn have no idea what is going on with hime. Has been sent to specialist neurologist in 3 weeks. Will have two MRIs next week, one for necka dn one for head. Therapy is going OK. Necka dn shoulder pain feels marginally better than when he started. still wkaes up in pain at times and hard to sleep many nights. Woke up at 1:00 last night due to arm pain R arm and felt better to lie on it. Maybe a little better on therapy days in neck. Still feels no energy or strengtha dn cannot walk well. He is not sure that the necka dn arm pain are related to the rest of it. Objective/Function: 60 B c/s rotation and 62 extension. No pain. - c/s compressiona nd no tendernessin c/s today. Full UE AROM albeit slow on R elevation. 4-/5 UE strength without myotomal problems. Pt stillable to get up out of cahir but hard time standing up tall and slow with imbalance. Hard for him to walk as he takes short steps. Pt presents today similar to his subjective with no improvement in mobility and balance but small improvements in neck. He appropriately wishes to hold on further therapy until after MRI and results from doctor. He has some gym exercises that he may do at times on his own. Plan Plan: Hold until MRI, pt to call after MRI for recheck on need for mobility, strength, balance work and OR neck work manual and ICT to [facility]ola as needed depending on results. Goals Goal 1:: Sleep 7 hours without discomfort at night Goal Time Frame: 4-6 Weeks Goal Progress: Not Progressing Goal 2:: I approp HEP for balance and strength to minimze future problems Goal Time Frame: 4-6 Weeks Goal Progress: Goal Met Goal 3:: Improve gait to normal step length and FGa to 24/30 to minimize future fall risk. Goal Time Frame: 8-12 Weeks Goal Progress: Not Progressing Goal 4:: Neurocom balance test adn results to leno Goal Time Frame: 2 Weeks Goal Progress: Goal Met Goal 5:: Pt feel 75% better overall in pain and gait Goal Time Frame: 8-12 Weeks Goal Progress: 20% in neck only. Anticipated Interventions Patient/Client Instruction: Educate patient on: Condition, Plan of Care For the Purpose of:: To decrease pain, To increase ROM, To improve muscle performance and motor function, To increase tolerance to activity/condition/position, To improve gait and locomotor functions Therapeutic Exercise to Include: Strength training, Balance training, Postural training, Flexibilty training, Gait and locomotor training, Scapular Strength/Stabilization For the Purpose of:: To decrease pain, To increase ROM, To improve muscle performance and motor function, To increase tolerance to activity/condition/position, To improve ability of physical actions for home/community/work/leisure, To improve gait and locomotor functions, To improve safety Manual Therapy Techniques to Include: Soft tissue mobilization For the Purpose of:: To decrease pain, To increase ROM Intermittent cervical traction: Yes For the Purpose of:: To decrease pain, To increase ROM, To improve muscle performance and motor function Please do not hesitate to contact me at [phone] by phone or if you have questions or concerns regarding this new plan of care! Sincerely, Bryn Abrams, DPT, OCS, CSCS
--- NOTE | 2021-05-26 06:55 | HP.PT.NRP ---
ELIZABETH SAMS was seen in my office for initial evaluation on 04/07/21. The following Plan of Care was established for this patient: Initial Frequency: 1x/Week Initial Duration: 3 Months Patient/Client Instruction: Educate patient on: Condition, Plan of Care For the Purpose of:: To decrease pain, To increase ROM, To improve muscle performance and motor function, To increase tolerance to activity/condition/position, To improve gait and locomotor functions Therapeutic Exercise to Include: Strength training, Balance training, Postural training, Flexibilty training, Gait and locomotor training, Scapular Strength/Stabilization For the Purpose of:: To decrease pain, To increase ROM, To improve muscle performance and motor function, To increase tolerance to activity/condition/position, To improve ability of physical actions for home/community/work/leisure, To improve gait and locomotor functions, To improve safety Manual Therapy Techniques to Include: Soft tissue mobilization For the Purpose of:: To decrease pain, To increase ROM Intermittent cervical traction: Yes For the Purpose of:: To decrease pain, To increase ROM, To improve muscle performance and motor function This patient was last seen in our office 05/08/21. Pertinent comments regarding their Physical therapy will appear below: Pt seen 6 visits and was not improving as expected. He had an MRI that showed cervical stenosis and will see a surgeon and continue with home PT but not be returning to PT at this time. Discontinue from my care at his request per email. At this point I will be discontinuing this patient from physical therapy. I would be happy to see this patient again in the future if found appropriate by the physician. Thank you! Bryn Abrams, DPT, OCS, CSCS
== END 2021-05-08 19:00 | disposition home or self-care (01) ==
LOC: PT 10:00
PROVIDERS: PCP Family Medicine; Referring Provider Family Medicine; Visit Provider Family Medicine
DX: R26.0 Ataxic gait (principal); M62.81 Muscle weakness (generalized); M25.511 Pain in right shoulder; M79.601 Pain in right arm
CPT/HCPCS: 97012; 97110; 97163; 97530; 97750

== ENCOUNTER → 2021-06-26 10:14 | Outpatient (CLI) | payer MEDICARE, SELFPAY ==
[2021-05-30 13:55] VITALS: BMI 23.9
--- NOTE | 2021-06-26 10:14 | MRI_ITS ---
STUDY: MRI CERVICAL SPINE WITHOUT CONTRAST REASON FOR EXAM: Male, 86 years old. pain, finger numbness TECHNIQUE: Standardized fat and water weighted pulse sequences were obtained in the sagittal and axial planes. COMPARISON: X-ray 03/13/2021 FINDINGS: Normal foramen magnum and brainstem-cervical cord junction. Normal craniovertebral junction. Normal anterior atlantoaxial articulation. Normal odontoid process. Normal cervical lordosis. Normal vertebral bodies and posterior osseous elements. C2-3: Normal endplates. Normal disc height, signal and morphology. Normal central canal and intervertebral neural foramina. C3-4: Moderate bilateral facet hypertrophy. 5 mm of anterolisthesis of C3 on C4 with a moderate broad disc protrusion produces severe spinal stenosis with mild cord compression from anterior and posterior. C4-5: 2 mm of anterolisthesis of C4 on C5 with a mild bilobed disc protrusion produces mild spinal stenosis and moderate bilateral neural foraminal stenosis. C5-6: Mild bilobed disc osteophyte complex produces mild spinal stenosis and mild bilateral neural foraminal stenosis. C6-7: Normal endplates. Normal disc height, signal and morphology. Normal central canal and intervertebral neural foramina. C7-T1: Normal endplates. Normal disc height, signal and morphology. Normal central canal and intervertebral neural foramina. Normal cervical cord. Normal visualized soft tissue structures. MRI/Spine Cervical (Routine) IMPRESSION: Multilevel degenerative changes, as described above. Electronically Signed: Vinod Espino MD at 13:25 EDT Tel , Service support ,
== END ==
PROVIDERS: PCP Family Medicine; Referring Provider Orthopaedic Surgery; Visit Provider Orthopaedic Surgery
DX: G11.9 Hereditary ataxia, unspecified (principal); M48.02 Spinal stenosis, cervical region
CPT/HCPCS: 72141

== ENCOUNTER → 2021-09-08 08:07 | Outpatient (CLI) | payer MEDICARE, SELFPAY ==
--- NOTE | 2021-09-08 08:35 | MRI_ITS ---
STUDY: MR Spine Lumbar W/O Contrast 09/09/2021 3:44 PM REASON FOR EXAM: Male, 86 years old. Back pain SPINAL STENOSIS TECHNIQUE: MR Spine Lumbar W/O Contrast Standardized fat and water weighted pulse sequences were obtained. COMPARISON: 03.13.21 XR FINDINGS: Normal lumbar lordosis. There is no substantial scoliosis. Normal conus medullaris that terminates at the L1. L1-2: Loss of intervertebral disc height. There is endplate spondylosis of the vertebral body. Normal central canal and intervertebral neuroforamina. There is bilateral facet arthropathy. There is bilateral ligamentum flavum thickening. L2-3: Loss of intervertebral disc height. There is endplate spondylosis of the vertebral body. Normal central canal and intervertebral neuroforamina. There is bilateral facet arthropathy. There is bilateral ligamentum flavum thickening. L3-4: Loss of intervertebral disc height. There is endplate spondylosis of the vertebral body. There is bilateral facet arthropathy. Bilateral moderate neural foraminal stenosis. NO compression of exiting nerve roots. Severe spinal stenosis. There is bilateral ligamentum flavum thickening. Narrowing of the lateral recess. L4-5: Loss of intervertebral disc height. There is endplate spondylosis of the vertebral body. There is bilateral facet arthropathy. Bilateral severe neural foraminal stenosis. Compression of exiting nerve roots. Posterior disc herniation. Severe spinal stenosis. Vacuum disc phenomenon. There is bilateral ligamentum flavum thickening. Narrowing of the lateral recess. L5-S1: Loss of intervertebral disc height. There is endplate spondylosis of the vertebral body. There is bilateral facet arthropathy. Bilateral neural foraminal stenosis. Compression of exiting nerve roots. Posterior disc bulge osteophyte complex. Vacuum disc phenomenon. There is bilateral ligamentum flavum thickening. Narrowing of the lateral recess. Normal visualized sacral ala. Normal visualized paraspinous soft tissue structures. MRI/Spine Lumbar (Routine) IMPRESSION: Multilevel degenerative changes, as described above. L4-5 demonstrates a central disc herniation causing severe spinal stenosis. There are multiple degenerative findings at L3-4 which is causing severe spinal stenosis. Electronically Signed: Abhishek Mcdonough MD at 15:48 EST , Service support ,
== END ==
PROVIDERS: PCP Family Medicine; Referring Provider Psychiatry & Neurology Neurology; Visit Provider Psychiatry & Neurology Neurology
DX: M47.26 Other spondylosis with radiculopathy, lumbar region (principal); M51.16 Intervertebral disc disorders with radiculopathy, lumbar region; M48.062 Spinal stenosis, lumbar region with neurogenic claudication
CPT/HCPCS: 72148

== ENCOUNTER → 2021-09-29 11:31 | Outpatient (CLI) | payer MEDICARE, SELFPAY ==
[2021-09-29 15:21] LABS: Absolute Lymphocyte Count 0.94 X10^3/uL (0.83-4.51); Absolute Neutrophil Count 3.7 X10^3/uL (2.0-7.7); Basophil# 0.06 X10^3/uL; Basophil% 1.1 % (0-1); Eosinophil# 0.07 X10^3/uL; Eosinophils% 1.3 % (0-5); Hematocrit 37.5 % (40-54); Hemoglobin 12.3 g/dL (13.0-16.5); Lymphocyte # 0.94 X10^3/ul (0.83-4.51); Lymphocyte % 17.8 % (19-41); Mean Corp Hgb Conc 32.8 g/dL (32-36); Mean Corpuscular Hgb 30.5 pg (27.0-32.0); Mean Corpuscular Volume 93.1 fL (80-94); Mean Platelet Vol. 8.8 fl (6.2-12.0); Monocyte# 0.47 X10^3/uL; Monocyte% 8.9 % (0-10); NRBC Flagged by Analyzer 0 % (0-5); Neutrophil # 3.73 X10^3/uL (2.7-7.7); Neutrophil % 70.5 % (47-70); Platelet Count 237 K/mm3 (150-450); RBC Distribution Width CV 12.2 % (11.6-14.6); RBC Distribution Width SD 41.7 fl (35.1-43.9); Red Blood Count 4.03 M/mm3 (4.6-6.2); White Blood Count 5.3 K/mm3 (4.4-11.0)
[2021-09-29 15:41] LABS: Erythrocyte Sedimentation Rate 5 mm/hr (0-20)
[2021-09-29 15:51] LABS: Syphilis Antibodies Non-reactive; Vitamin B12 420 pg/mL (211-911)
[2021-09-29 16:19] LABS: ALB/GLOB Ratio 1.2 RATIO (0.9-2.4); AST(SGOT) 36 U/L (15-37); Alanine Aminotransfer ALT/SGPT 37 U/L (16-61); Alkaline Phosphatase 94 U/L (45-117); Anion Gap 6 (5-15); BUN 21 mg/dL (7-18); BUN/Creat Ratio 17.2 RATIO (10-20); CRP < 2.90 mg/L (0.0-3.0); Calcium,Total 9.5 mg/dL (8.5-10.1); Chloride 102 mmol/L (98-107); Creatinine, Serum 1.22 mg/dL (0.70-1.30); EST Glomerular Filtration Rate 60 mL/min (>60); Est Glom Filt Rate - Afr Amer 73 mL/min (>60); Ferritin 47 ng/mL (26-388); Free T3 2.6 pg/mL (2.18-3.98); Globulin 3.3 g/dL (2.2-4.2); Glucose 96 mg/dL (74-106); Potassium 4.2 mmol/L (3.5-5.1); Protein, Total 7.3 g/dL (6.4-8.2); Sodium Level 137 mmol/L (136-145); T4 Free Direct 1.13 ng/dL (0.76-1.46); Thyroid Stim Hormone (TSH) 1.72 uIU/mL (0.358-3.74)
[2021-10-01 19:38] LABS: ANTINUCLEAR ANTIBODIES DIRECT Negative (Negative)
[2021-10-09 19:06] LABS: Lyme IgG P18 Ab Absent (.); Lyme IgG P23 Ab Absent (.); Lyme IgG P28 Ab Absent (.); Lyme IgG P30 Ab Absent (.); Lyme IgG P39 Ab Absent (.); Lyme IgG P41 Ab Present (.); Lyme IgG P45 Ab Absent (.); Lyme IgG P58 Ab Present (.); Lyme IgG P66 Ab Absent (.); Lyme IgG P93 Ab Present (.); Lyme IgM P23 Ab Absent (.); Lyme IgM P39 Ab Absent (.); Lyme IgM P41 Ab Absent (.); PROEL- A/G Ratio 1.5 (0.7-1.7); PROEL- Alpha-1 Globulin 0.2 g/dL (0.0-0.4); PROEL- Alpha-2 Globulin 0.6 g/dL (0.4-1.0); PROEL- Gamma Globulin 0.9 g/dL (0.4-1.8); PROEL- Globulin, Total 2.7 g/dL (2.2-3.9); PROEL- TOTAL PROTEIN 6.7 g/dL (6.0-8.5); PROELU- Albumin, Urine 25.1 % (.); PROELU- Alpha-1-Globulin,Ur 4.4 % (.); PROELU- Beta Globulin, Ur 34.7 % (.); PROELU- Gamma Globulin, Ur 21.8 % (.); Total Protein, Ur 15.6 mg/dL (Not Estab.)
[2021-10-09 19:48] LABS: Lyme IgG WB Interpretation Negative (.); Lyme IgM WB Interpretation Negative (.)
== END ==
PROVIDERS: PCP Family Medicine; Referring Provider Family Medicine; Visit Provider Family Medicine
DX: R20.2 Paresthesia of skin (principal); R74.8 Abnormal levels of other serum enzymes
CPT/HCPCS: 80053; 82140; 82607; 82728; 82746; 83970; 84165; 84166; 84439; 84443; 84481; 85025; 85652; 86038; 86140; 86617; 86780

== ENCOUNTER → 2021-10-27 08:45 | Outpatient (CLI) | payer MEDICARE, SELFPAY ==
--- NOTE | 2021-10-27 08:48 | US_ITS ---
STUDY: ABDOMINAL ULTRASOUND - RIGHT UPPER QUADRANT REASON FOR VISIT: Male, 86 years old ELEVATED MARIANELA GASPAR TECHNIQUE: Ultrasound evaluation of the right upper quadrant was performed with real-time and static granda-scale imaging. TECHNICAL QUALITY: Adequate. COMPARISON: None. FINDINGS: Liver: The liver measures 14.5 cm. There is increased echogenicity consistent with fatty infiltration. The bile ducts are within normal limits. There is hepatic color flow. The direction of portal flow is hepatopetal. There is no demonstrated mass lesion. Gallbladder: Normal distended gallbladder. The gallbladder wall measures 1.8 mm. There is a negative sonographic Rodriguez''s sign. There is no pericholecystic fluid. There are no gallstones. Common Bile Duct (C.B.D.): The common bile duct measures 3.7 mm. Pancreas: Normal size of the head, body and tail of the pancreas. There is normal echogenicity of the pancreas. There is no demonstrated pancreatic mass or cyst. Right Kidney: Normal size of the right kidney. The right kidney measures 10.7 cm x 5.4 cm x 6 cm. Normal renal cortex. The right cortex measures 1.8 cm. There is no demonstrated renal mass or cyst. There is no right hydronephrosis. IMPRESSION: Mild degree of fatty infiltration of the liver. Electronically Signed: Smith Veloz MD at 8:56 EST , Service support , STUDY: ABDOMINAL ULTRASOUND - ELASTOGRAPHY REASON FOR VISIT: Male, 86 years old. Elevated bilirubin. TECHNIQUE: Liver stiffness measurements were obtained on a [employer] [id number] ultrasound machine using a CA 1-7 probe following the SRU guidelines. 3 measurements were obtained using a 2-D-SWE method. The IQR/M was 22 % suggesting a quality data set. TECHNICAL QUALITY: Adequate. COMPARISON: Comparison is made with prior ultrasound of the right upper quadrant done earlier today. FINDINGS: Liver: Mild degree of fatty infiltration of liver. Median liver stiffness measured 6.6 kPa. US/Abdomen Limited IMPRESSION: Liver stiffness measures 6.6 kPa compatible with F2 Metavir score. Electronically Signed: Smith Veloz MD at 8:58 EST , Service support ,
== END ==
PROVIDERS: PCP Family Medicine; Referring Provider Family Medicine; Visit Provider Family Medicine
DX: R17 Unspecified jaundice (principal)
CPT/HCPCS: 76705; 76981

== ENCOUNTER 2021-12-17 11:35 | Outpatient (CLI) | payer MEDICARE, SELFPAY ==
[2021-12-19 13:08] LABS: RNP Ab <0.2 AI (0.0-0.9)
[2021-12-19 16:05] LABS: Smith Ab <0.2 AI (0.0-0.9)
[2021-12-31 12:09] LABS: VITAMIN B6 62.8 ug/L (5.3-46.7); Vitamin B1, Thiamine 176.1 nmol/L (66.5-200.0)
[2021-12-31 13:23] LABS: Copper, Serum or Plasma 115 ug/dL (69-132)
== END 2021-12-17 23:59 | disposition home or self-care (01) ==
LOC: MTLAB 11:37
PROVIDERS: PCP Family Medicine; Referring Provider Psychiatry & Neurology Neurology; Visit Provider Psychiatry & Neurology Neurology
DX: G62.9 Polyneuropathy, unspecified (principal)
CPT/HCPCS: 36415; 82525; 84207; 84425; 86235

== ENCOUNTER → 2022-06-23 | Outpatient (CLI) | payer MEDICARE, SELFPAY | END | disposition home or self-care (01) | LOC: LABSPEC 13:53 | PROVIDERS: PCP Family Medicine; Visit Provider Family Medicine | DX: N30.90 Cystitis, unspecified without hematuria (principal) | CPT/HCPCS: 87086 ==

== ENCOUNTER → 2023-03-01 | Outpatient (CLI) | payer MEDICARE, SELFPAY ==
[2023-03-01 10:24] LABS: Hematocrit 38.1 % (40-54); Hemoglobin 12.6 g/dL (13.0-16.5); Mean Corp Hgb Conc 33.1 g/dL (32-36); Mean Corpuscular Hgb 31.3 pg (27.0-32.0); Mean Corpuscular Volume 94.8 fL (80-94); Mean Platelet Vol. 8.6 fl (6.2-12.0); Platelet Count 216 K/mm3 (150-450); RBC Distribution Width CV 12.6 % (11.6-14.6); RBC Distribution Width SD 44.1 fl (35.1-43.9); Red Blood Count 4.02 M/mm3 (4.6-6.2); White Blood Count 4.8 K/mm3 (4.4-11.0)
[2023-03-01 10:46] LABS: Vitamin B12 383 pg/mL (211-911)
[2023-03-01 13:22] LABS: Microalbumin,Random Urine 34.8 mg/L (NO RANGE EST.); Microalbumin:Creatinine Ratio 33.1 mg/g CRE (<30 mg/g CRE)
[2023-03-01 13:40] LABS: ALB/GLOB Ratio 1.2 RATIO (0.9-2.4); AST(SGOT) 35 U/L (15-37); Alanine Aminotransfer ALT/SGPT 36 U/L (16-61); Alkaline Phosphatase 94 U/L (45-117); Anion Gap 7 (5-15); BUN 19 mg/dL (7-18); BUN/Creat Ratio 15.7 RATIO (10-20); Calcium,Total 9.4 mg/dL (8.5-10.1); Chloride 104 mmol/L (98-107); Cholesterol 187 mg/dL (200); Creatinine, Serum 1.21 mg/dL (0.70-1.30); EST Glomerular Filtration Rate 60 mL/min (>60); Est Glom Filt Rate - Afr Amer 73 mL/min (>60); Folates, (Folic Acid) > 100.00 ng/mL (3.1-55.4); Globulin 3.3 g/dL (2.2-4.2); Glucose 100 mg/dL (74-106); High Density Lipoprotein 96 mg/dL; PSA,Total- Diagnostic 1.13 ng/mL (0.0-4.0); Potassium 4.8 mmol/L (3.5-5.1); Protein, Total 7.3 g/dL (6.4-8.2); Sodium Level 138 mmol/L (136-145); Thyroid Stim Hormone (TSH) 1.97 uIU/mL (0.358-3.74); Triglycerides 66 mg/dL; Very Low Density Lipoprotein 13 mg/dL (5-40)
== END | disposition home or self-care (01) ==
LOC: MTLAB 07:50
PROVIDERS: PCP Family Medicine; Referring Provider Family Medicine; Visit Provider Family Medicine
DX: N40.0 Benign prostatic hyperplasia without lower urinary tract symptoms (principal); M48.02 Spinal stenosis, cervical region; I10 Essential (primary) hypertension
CPT/HCPCS: 36415; 80053; 80061; 82043; 82570; 82607; 82746; 84153; 84443; 85027

== ENCOUNTER → 2023-08-02 | Outpatient (CLI) | payer MEDICARE, SELFPAY ==
[2023-08-02 15:21] LABS: Absolute Lymphocyte Count 0.86 X10^3/uL (0.83-4.51); Absolute Neutrophil Count 3.1 X10^3/uL (2.0-7.7); Basophil# 0.04 X10^3/uL; Basophil% 0.8 % (0-1); Eosinophils% 2.1 % (0-5); Hematocrit 38.6 % (40-54); Hemoglobin 12.3 g/dL (13.0-16.5); Lymphocyte # 0.86 X10^3/ul (0.83-4.51); Lymphocyte % 18.3 % (19-41); Mean Corp Hgb Conc 31.9 g/dL (32-36); Mean Corpuscular Hgb 30.1 pg (27.0-32.0); Mean Corpuscular Volume 94.6 fL (80-94); Mean Platelet Vol. 8.9 fl (6.2-12.0); Monocyte# 0.55 X10^3/uL; Monocyte% 11.7 % (0-10); NRBC Flagged by Analyzer 0 % (0-5); Neutrophil # 3.14 X10^3/uL (2.7-7.7); Neutrophil % 66.7 % (47-70); Platelet Count 199 K/mm3 (150-450); RBC Distribution Width CV 12.4 % (11.6-14.6); RBC Distribution Width SD 43.3 fl (35.1-43.9); Red Blood Count 4.08 M/mm3 (4.6-6.2); White Blood Count 4.7 K/mm3 (4.4-11.0)
[2023-08-02 15:42] LABS: Erythrocyte Sedimentation Rate 2 mm/hr (0-20)
[2023-08-02 16:16] LABS: ALB/GLOB Ratio 1.4 RATIO (0.9-2.4); AST(SGOT) 25 U/L (15-37); Alanine Aminotransfer ALT/SGPT 28 U/L (16-61); Albumin, Serum 4.2 g/dL (3.2-5.0); Alkaline Phosphatase 83 U/L (45-117); Anion Gap 4 (5-15); BUN 17 mg/dL (7-18); BUN/Creat Ratio 13.5 RATIO (10-20); CRP < 2.90 mg/L (0.0-3.0); Calcium,Total 9.2 mg/dL (8.5-10.1); Chloride 102 mmol/L (98-107); Creatinine, Serum 1.26 mg/dL (0.70-1.30); EST Glomerular Filtration Rate 58 mL/min (>60); Est Glom Filt Rate - Afr Amer 70 mL/min (>60); Glucose 91 mg/dL (74-106); Potassium 4.4 mmol/L (3.5-5.1); Protein, Total 7.2 g/dL (6.4-8.2); Sodium Level 136 mmol/L (136-145)
[2023-08-03 09:45] LABS: PTHIN 43.8 pg/mL (18.4-80.1)
[2023-08-04 12:09] LABS: ANTINUCLEAR ANTIBODIES DIRECT Negative (Negative)
[2023-08-04 15:08] LABS: Lyme Scn Total Ab w/Rflx Negative (Negative); PROEL- A/G Ratio 1.6 (0.7-1.7); PROEL- Albumin 4.1 g/dL (2.9-4.4); PROEL- Alpha-1 Globulin 0.2 g/dL (0.0-0.4); PROEL- Alpha-2 Globulin 0.6 g/dL (0.4-1.0); PROEL- Beta Globulin 0.9 g/dL (0.7-1.3); PROEL- Gamma Globulin 0.8 g/dL (0.4-1.8); PROEL- Globulin, Total 2.6 g/dL (2.2-3.9); PROEL- TOTAL PROTEIN 6.7 g/dL (6.0-8.5)
== END | disposition home or self-care (01) ==
LOC: MFPLAB 11:28
PROVIDERS: PCP Family Medicine; Visit Provider Family Medicine
DX: M25.50 Pain in unspecified joint (principal); R29.898 Other symptoms and signs involving the musculoskeletal system
CPT/HCPCS: 36415; 80053; 83970; 84165; 85025; 85652; 86038; 86140; 86618

== ENCOUNTER → 2024-02-29 | Outpatient (CLI) | payer MEDICARE, SELFPAY ==
[2024-02-29 12:37] LABS: Absolute Lymphocyte Count 0.79 X10^3/uL (0.83-4.51); Absolute Neutrophil Count 3.5 X10^3/uL (2.0-7.7); Basophil# 0.04 X10^3/uL; Basophil% 0.8 % (0-1); Eosinophil# 0.14 X10^3/uL; Eosinophils% 2.7 % (0-5); Hematocrit 37.3 % (40-54); Hemoglobin 12.4 g/dL (13.0-16.5); Lymphocyte # 0.79 X10^3/ul (0.83-4.51); Lymphocyte % 15.3 % (19-41); Mean Corp Hgb Conc 33.2 g/dL (32-36); Mean Corpuscular Hgb 31.4 pg (27.0-32.0); Mean Corpuscular Volume 94.4 fL (80-94); Mean Platelet Vol. 8.8 fl (6.2-12.0); Monocyte# 0.66 X10^3/uL; Monocyte% 12.8 % (0-10); NRBC Flagged by Analyzer 0 % (0-5); Platelet Count 195 K/mm3 (150-450); Red Blood Count 3.95 M/mm3 (4.6-6.2); White Blood Count 5.2 K/mm3 (4.4-11.0)
[2024-02-29 12:55] LABS: Vitamin B12 499 pg/mL (211-911)
[2024-02-29 14:41] LABS: ALB/GLOB Ratio 1.7 RATIO (0.9-2.4); AST(SGOT) 43 U/L (15-37); Alanine Aminotransfer ALT/SGPT 34 U/L (16-61); Albumin, Serum 4.3 g/dL (3.2-5.0); Alkaline Phosphatase 75 U/L (45-117); Anion Gap 7 (5-15); BUN 21 mg/dL (7-18); BUN/Creat Ratio 17.1 RATIO (10-20); Calcium,Total 9.5 mg/dL (8.5-10.1); Chloride 101 mmol/L (98-107); Creatinine, Serum 1.23 mg/dL (0.70-1.30); EST Glomerular Filtration Rate 59 mL/min (>60); Est Glom Filt Rate - Afr Amer 72 mL/min (>60); Ferritin 42 ng/mL (26-388); Folates, (Folic Acid) > 100.00 ng/mL (3.1-55.4); Globulin 2.6 g/dL (2.2-4.2); Glucose 98 mg/dL (74-106); Iron Binding Capacity,Total 407 ug/dL (250-450); PSA,Total- Diagnostic 1.01 ng/mL (0.0-4.0); Potassium 4.4 mmol/L (3.5-5.1); Protein, Total 6.9 g/dL (6.4-8.2); Sodium Level 134 mmol/L (136-145); Thyroid Stim Hormone (TSH) 1.51 uIU/mL (0.358-3.74)
[2024-03-01 12:49] LABS: Microalbumin,Random Urine 29.1 mg/L (NO RANGE EST.); Microalbumin:Creatinine Ratio 47.9 mg/g CRE (<30 mg/g CRE)
== END | disposition home or self-care (01) ==
LOC: MFPLAB 10:04
PROVIDERS: PCP Family Medicine; Visit Provider Family Medicine
DX: I10 Essential (primary) hypertension (principal); D64.9 Anemia, unspecified; N40.0 Benign prostatic hyperplasia without lower urinary tract symptoms; M25.50 Pain in unspecified joint
CPT/HCPCS: 36415; 80053; 82043; 82570; 82607; 82728; 82746; 83550; 84153; 84443; 85025

== ENCOUNTER → 2024-08-21 | Outpatient (CLI) | payer MEDICARE, SELFPAY ==
--- NOTE | 2024-08-21 13:15 | MRI_ITS ---
EXAM: MR LEFT UPPER EXTREMITY WITHOUT INTRAVENOUS CONTRAST, SHOULDER CLINICAL INDICATION: rotator cuff disorder tendonitis TECHNIQUE: Multiplanar and multisequence MR images of the left shoulder without intravenous contrast. COMPARISON: May 17, 2024 FINDINGS: TENDONS: SUPRASPINATUS: Unremarkable. Intact. INFRASPINATUS: Full-thickness fullwidth tear of the supraspinatus and infraspinatus tendons with failure at the footprint and with retraction medially past the joint line. SUBSCAPULARIS: Moderate grade partial-thickness tearing of the distal superior fibers of the subscapularis tendon. TERES MINOR: Unremarkable. Intact. BICEPS BRACHII, LONG HEAD: Partial-thickness tear involving the long biceps tendon which is medially subluxed onto the lesser tubercle. The extra-articular biceps tendon is in the bicipital groove. LIGAMENTS: GLENOHUMERAL: Unremarkable. Intact. MUSCLES: Unremarkable. No rotator cuff muscle atrophy. FLUID: Unremarkable. No joint effusion. No subacromial-subdeltoid space bursal fluid. CARTILAGE: Unremarkable. Articular cartilage intact. GLENOID LABRUM: Unremarkable. Intact, limited evaluation on non-arthrographic exam. BONES/JOINTS: Moderate to severe hypertrophic degenerative changes acromioclavicular joint with at least moderate mass effect on the underlying soft tissues. Moderate to large amount of fluid in the glenohumeral joint space with synovitis at the axillary pouch. Type II acromion with curved undersurface. Prominent subacromial enthesophyte is present. No os acromiale. MRI/Upper Ext Joint Only(Routine) IMPRESSION: 1. Full-thickness fullwidth tear of the supraspinatus and infraspinatus tendons with failure at the footprint and with retraction medially past the joint line. 2. Moderate to severe hypertrophic degenerative changes of the acromioclavicular joint. 3. Partial-thickness tear involving the long biceps tendon which is medially subluxed onto the lesser tubercle. 4. Moderate grade partial-thickness tearing of the distal superior fibers of the subscapularis tendon. 5. Prominent subacromial enthesophyte. Electronically Signed: Miky Dubon MD at 17:39 EDT ,
== END | disposition home or self-care (01) ==
LOC: MRI 12:37
PROVIDERS: PCP Family Medicine; Referring Provider Family Medicine; Visit Provider Family Medicine
DX: M75.102 Unspecified rotator cuff tear or rupture of left shoulder, not specified as traumatic (principal)
CPT/HCPCS: 73221

== ENCOUNTER → 2024-10-18 | Outpatient (CLI) | payer MEDICARE, SELFPAY ==
--- NOTE | 2024-10-18 13:58 | NEURO_ITS ---
NCS and/or EMG Patient Report Ordering Doctor: Raz Guillermo DATE OF SERVICE: 10/18/24 Michael presents for electrodiagnostic testing of the upper limbs. He has numbness and tingling in both hands. He has a history of cervical fusion. Electrodiagnostic findings: Median motor nerve demonstrates normal distal l atency bilaterally with normal amplitude and conduction velocity. Absent median sensory latency at the wrist bilaterally. Absent right median palmar response. Ulnar motor response within normal limits on the right side. Left ulnar motor nerve demonstrates decreased conduction velocity across the elbow. Prolonged Median and ulnar F?waves. Needle EMG testing was performed in the upper limbs. All muscles tested showed no evidence of denervation with normal motor unit action potentials. Electrodiagnostic impression: This is an abnormal study in the upper limbs 1. Electrodiagnostic findings suggestive of bilateral median mononeuropathy. This consistent with a moderate bilateral carpal tunnel syndrome. 2. 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 3. No electrodiagnostic evidence is noted for cervical radiculopathy Multi Select Codes Neurology Neurology Interp Codes: 81291-81 Musc test done w/n test comp (interp) (2) and 85375-03 Nrv cndj test 11-12 studies (interp)
== END | disposition home or self-care (01) ==
LOC: PSN 12:26
PROVIDERS: PCP Family Medicine; Referring Provider Student in an Organized Health Care Education/Training Program; Visit Provider Student in an Organized Health Care Education/Training Program
DX: R20.2 Paresthesia of skin (principal)
CPT/HCPCS: 95886; 95912

== ENCOUNTER → 2024-12-26 | Outpatient (CLI) | payer MEDICARE, SELFPAY ==
[2024-12-26 11:02] LABS: Absolute Lymphocyte Count 1.18 X10^3/uL (0.83-4.51); Absolute Neutrophil Count 3.2 X10^3/uL (2.0-7.7); Basophil# 0.06 X10^3/uL; Basophil% 1.1 % (0-1); Eosinophil# 0.44 X10^3/uL; Hematocrit 35.1 % (40-54); Hemoglobin 11.5 g/dL (13.0-16.5); Lymphocyte # 1.18 X10^3/ul (0.83-4.51); Lymphocyte % 21.4 % (19-41); Mean Corp Hgb Conc 32.8 g/dL (32-36); Mean Corpuscular Hgb 31.4 pg (27.0-32.0); Mean Corpuscular Volume 95.9 fL (80-94); Mean Platelet Vol. 8.4 fl (6.2-12.0); Monocyte# 0.67 X10^3/uL; Monocyte% 12.1 % (0-10); NRBC Flagged by Analyzer 0 % (0-5); Neutrophil # 3.16 X10^3/uL (2.7-7.7); Neutrophil % 57.2 % (47-70); Platelet Count 195 K/mm3 (150-450); RBC Distribution Width CV 12.2 % (11.6-14.6); RBC Distribution Width SD 42.8 fl (35.1-43.9); Red Blood Count 3.66 M/mm3 (4.6-6.2); White Blood Count 5.5 K/mm3 (4.4-11.0)
[2024-12-26 17:20] LABS: Microalbumin,Random Urine 18.8 mg/L (NO RANGE EST.); Microalbumin:Creatinine Ratio 279.8 mg/g CRE
[2024-12-27 12:17] LABS: ALB/GLOB Ratio 1.9 RATIO (0.9-2.4); AST(SGOT) 34 U/L (<=37); Alanine Aminotransfer ALT/SGPT 29 U/L (<=46); Albumin, Serum 4.4 g/dL (3.4-4.8); Alkaline Phosphatase 77 U/L (40-129); Anion Gap 13 (5-15); BUN 23 mg/dL (4-19); BUN/Creat Ratio 21.1 RATIO (10-20); Calcium 9.6 mg/dL (7.6-11.0); Chloride 100 mmol/L (96-108); Creatinine, Serum 1.1 mg/dL (0.8-1.3); EST Glomerular Filtration Rate 66 (>60); Globulin 2.3 g/dL (2.2-4.2); Glucose 84 mg/dL (70-99); Potassium 4.8 mmol/L (3.3-5.1); Protein, Total 6.7 g/dL (5.9-8.4); Sodium Level 136 mmol/L (133-145); Total Bilirubin 1.03 mg/dL (0.00-1.30); Uric Acid 4.7 mg/dL (3.5-7.2)
[2024-12-27 12:38] LABS: Vitamin B12 866 pg/mL (180-914)
[2024-12-27 12:45] LABS: Folates, Serum > 40.00 ng/mL (4.60-34.80)
== END | disposition home or self-care (01) ==
LOC: MTLAB 08:34
PROVIDERS: PCP Family Medicine; Referring Provider Family Medicine; Visit Provider Family Medicine
DX: I10 Essential (primary) hypertension (principal); G56.02 Carpal tunnel syndrome, left upper limb; M10.9 Gout, unspecified
CPT/HCPCS: 36415; 80053; 82043; 82570; 82607; 82746; 84443; 84550; 85025

== ENCOUNTER → 2025-07-10 | Outpatient (CLI) | payer MEDICARE, SELFPAY ==
[2025-07-10 11:00] LABS: Mucous, Urine 0 SEEN /hpf (<or=2+); Red Blood Cells-Urine 0 SEEN /hpf (0-5)
[2025-07-10 13:10] LABS: Color, Urine Yellow (Yellow); Glucose, Dipstick Normal (Normal); Ketone-Dipstick Negative (Negative); Leukocyte Esterase-Dipstick Negative /ul (Negative); Nitrite-Dipstick Negative (Negative); Occult Blood-Urine Negative /ul (Negative); Protein-Dipstick Negative (Negative); Specific Gravity, Urine 1.010 (1.002-1.030); Urine Bilirubin Dipstick Negative (Negative)
[2025-07-10 13:36] LABS: Squamous Epithelial Cells - UA 0-5 SEEN /hpf (0-5)
[2025-07-10 13:41] LABS: Hematocrit 37.9 % (40-54); Hemoglobin 12.6 g/dL (13.0-16.5); Immature Granulocytes Count 0.010 X10^3/uL (0.0-0.0); Mean Corp Hgb Conc 33.2 g/dL (32-36); Mean Corpuscular Volume 94.5 fL (80-94); Mean Platelet Vol. 8.9 fl (6.2-12.0); NRBC Flagged by Analyzer 0 % (0-5); Platelet Count 189 K/mm3 (150-450); RBC Distribution Width CV 11.9 % (11.6-14.6); RBC Distribution Width SD 41.6 fl (35.1-43.9); Red Blood Count 4.01 M/mm3 (4.6-6.2); White Blood Count 5.1 K/mm3 (4.4-11.0)
[2025-07-10 17:52] LABS: AST(SGOT) 47 U/L (<=37); Alanine Aminotransfer ALT/SGPT 35 U/L (<=46); Albumin, Serum 4.7 g/dL (3.4-4.8); Alkaline Phosphatase 80 U/L (40-129); Anion Gap 12 (5-15); BUN 21 mg/dL (4-19); BUN/Creat Ratio 19.7 RATIO (10-20); Calcium,Total 9.6 mg/dL (7.6-11.0); Carbon Dioxide 24.9 mmol/L (21.0-32.0); Chloride 101 mmol/L (98-108); Globulin 2.4 g/dL (2.2-4.2); Glucose 95 mg/dL (70-99); PSA,Total- Diagnostic 0.97 ng/mL (0.00-4.00); Potassium 5.1 mmol/L (3.3-5.1)
== END | disposition home or self-care (01) ==
LOC: MFPLAB 10:57
PROVIDERS: PCP Family Medicine; Referring Provider Family Medicine; Visit Provider Family Medicine
DX: N40.1 Benign prostatic hyperplasia with lower urinary tract symptoms (principal); R39.15 Urgency of urination
CPT/HCPCS: 36415; 80053; 81001; 84153; 85025; 85652; 87086